=== PATIENT | male | born 1985 | race African-American/Black ===

== ENCOUNTER 2016-06-09 21:32 | Emergency (ER) | payer OTHER ==
[2016-06-09] MEDS ORDERED: BENZTROPINE MESYLATE 1 MG TABLET PO ONE (23:39)
--- NOTE | 2016-06-09 23:45 | ER Document Report ---
ED Allergic Reaction - General Chief Complaint: Allergic Reaction Stated Complaint: POSSIBLE ALLERGIC REACTION Notes: Patient is a 31-year-old male, past medical history depression, hyperlipidemia, presents with feeling like his mouth is spasming after he is taking his psych medications. He was recently started on Latuda and fluoxetine a week ago and the symptoms started then. He has had this in the past with other psychiatric medications and Xochiltentin helped him with the symptoms. He denies rash, tongue swelling, nausea, vomiting, SOB, chest pain or difficulty swallowing. - Related Data Allergies/Adverse Reactions: No Known Allergies Allergy (Verified 09/13/13 17:04) Past Medical History - General Information source: Patient - Social History Smoking Status: Unknown if Ever Smoked Family History: Reviewed & Not Pertinent - Past Medical History Cardiac Medical History: Reports: Hx Hypercholesterolemia Renal/ Medical History: Denies: Hx Peritoneal Dialysis - Immunizations Hx Diphtheria, Pertussis, Tetanus Vaccination: Yes Review of Systems - Review of Systems Notes: REVIEW OF SYSTEMS: CONSTITUTIONAL: -fevers, -chills EENT: -eye pain, -difficulty swallowing, -nasal congestion, +mouth spasming CARDIOVASCULAR:-chest pain, -syncope. RESPIRATORY: -cough, -SOB GASTROINTESTINAL: -abdominal pain, - nausea, -vomiting, -diarrhea GENITOURINARY: -dysuria, -hematuria MUSCULOSKELETAL: -back pain, -neck pain SKIN: -rash or skin lesions. HEMATOLOGIC: -easy bruising or bleeding. LYMPHATIC: -swollen, enlarged glands. NEUROLOGICAL: -altered mental status or loss of consciousness, -headache, - neurologic symptoms PSYCHIATRIC: -anxiety, -depression. ALL OTHER SYSTEMS REVIEWED AND NEGATIVE. Physical Exam - Vital signs Vitals: Temp Pulse Resp BP Pulse Ox 98.2 F 102 H 18 127/81 H 97 06/09/16 21:42 06/09/16 21:42 06/09/16 21:42 06/09/16 21:42 06/09/16 21:42 - Notes Notes: PHYSICAL EXAMINATION: GENERAL: Well-appearing, well-nourished and in no acute distress. HEAD: Atraumatic, normocephalic. EYES: Pupils equal round and reactive to light, extraocular movements intact, sclera anicteric, conjunctiva are normal. ENT: mouth open but will close when instructed, nares patent, oropharynx clear without exudates. Moist mucous membranes. NECK: Normal range of motion, supple without lymphadenopathy LUNGS: Breath sounds clear to auscultation bilaterally and equal. No wheezes rales or rhonchi. HEART: Regular rate and rhythm without murmurs ABDOMEN: Soft, nontender, normoactive bowel sounds. No guarding, no rebound. No masses appreciated. EXTREMITIES: Normal range of motion, no pitting or edema. No cyanosis. NEUROLOGICAL: Cranial nerves grossly intact. Normal speech, normal gait. Normal sensory, motor, and reflex exams. PSYCH: Normal mood, normal affect. SKIN: Warm, Dry, normal turgor, no rashes or lesions noted. Course - Re-evaluation Re-evalutation: Patient has no signs of anaphylaxis at this time and is protecting his airway. He is exhibiting symptoms of a dystonic reaction from his new psychiatric medications. We will send him home with Evie and follow up with his psychiatrist. - Vital Signs Vital signs: Temp Pulse Resp BP Pulse Ox 98.2 F 102 H 18 127/81 H 97 06/09/16 21:42 06/09/16 21:42 06/09/16 21:42 06/09/16 21:42 06/09/16 21:42 Discharge - Discharge Clinical Impression: Dystonia Condition: Good Disposition: HOME, SELF-CARE Additional Instructions: Dystonic Reaction to Medication Your symptoms were caused by the effects of medication on the "muscle control" areas of the brain. This results in uncontrollable movements and muscle spasms. The symptoms usually start with the mouth, jaw, and tongue, but may involve any area of the body. Anti-nausea medications and psychiatric medications (such as Compazine, Reglan, Haldol) can cause this side effect. The usual treatment is diphenhydramine (Benadryl). Mild cases may require only oral medication. However, intravenous medication is most rapidly effective and is usually necessary for severe reactions. It's usually a good idea to take diphenhydramine by mouth for a day or two after the emergency treatment. Your doctor will discuss this with you. It's best to avoid the medicine that caused this reaction in the future. But if it's important that you continue this medicine, you can do so, while using Benadryl on a regular basis to suppress the dystonic reaction. This is not a true allergy. Return if muscle pains or spasms, difficulty breathing or swallowing, or uncontrollable motions occur again. Prescriptions: Benztropine Mesylate [Cogentin 1 mg Tablet] 1 tab PO DAILY #30 tab Referrals: [facility] - Follow up as needed
[2016-06-09 23:53] VITALS: BP 126/81
== END 2016-06-09 23:53 | disposition home or self-care (01) ==
LOC: ER 21:32
DX: G24.9 Dystonia, unspecified (principal); F32.9 Major depressive disorder, single episode, unspecified
CPT/HCPCS: 99283